=== PATIENT | male | born 1975 | race Caucasian/White ===

== ENCOUNTER → 2016-07-02 | Day surgery (SDC) | payer BC ==
[2016-06-18 14:11] VITALS: Ht 172.7 cm; Wt 105.9 kg
[~2016-07-02] VITALS: Ht 172.7 cm; Wt 105.9 kg
[~2016-07-02] MED LIST: ATOR-22 PO; BUPIVACAINE 0.25% 2.5MG/ML PF 10 ML VIAL INFIL ONE; IBUP-103 PO; IOPAMIDOL INJ 61% 15 ML VIAL ONE; LIDOCAINE HCL 1% MPF 5 ML VIAL ONE; LISI-787 PO; SODIUM CHLORIDE 0.9% INJ 10 ML VIAL ONE
--- NOTE | 2016-07-02 13:39 | History & Physical Bridge - SC ---
H&P Re-Evaluation Bridge Note: I have examined the patient, reviewed the History & Physical and in the interval since the performance of the History & Physical I have noted the following changes of clinical significance: No changes noted
[2016-07-02 14:15] VITALS: TEMP 37.4
--- NOTE | 2016-07-02 14:15 | Discharge Instructions ---
Discharge Instructions Date of Service Jul 02, 2016. Visit Reason for Visit: Lumbar Spondylolisthesis Discharge Discharge Diagnosis / Problem: chronic back pain Discharge Goals Goal(s): Decrease discomfort, Improve function Activity Recommendations Activity Limitations: resume your previous activity Anesthesia . Post Anesthesia Instructions: If you have had General Anesthesia or IV Sedation: * Do not drive today. * Resume driving when surgeon permits. * Do not make important decisions or sign legal documents today. * Call surgeon for: 1. Temperature elevations greater than 101 degrees F. 2. Uncontrollable pain. 3. Excessive bleeding. 4. Persistent nausea and vomiting. 5. Medication intolerance (nausea, vomiting or rash). * For nausea and vomiting use only clear liquids such as: tea, soda, bouillon until nausea subsides, then gradually increase diet as tolerated. * If you have any concerns or questions, call your surgeon's office. If physician is unavailable and it is an emergency, call 911 or go to the nearest emergency room. . Diet Recommendations Recommended Home Diet: resume previous diet Procedures Procedures Performed: BILATERAL L5 PARS DEFECT INJECTIONS. Pending Studies Studies pending at discharge: no Medical Emergencies . Who to Call and When: Medical Emergencies: If at any time you feel your situation is an emergency, please call 911 immediately. . Non-Emergent Contact Non-Emergency issues call your: Specialist . . "Provider Documentation" section prepared by Yaw Mcclendon.
[2016-07-02 14:21] VITALS: BP 145/90; PULSE 86; O2SAT 94
--- NOTE | 2016-07-02 15:53 | OPERATIVE REPORT ---
DATE OF OPERATION: 07/02/2016 PREOPERATIVE DIAGNOSES: Bilateral L5 pars defects, a grade-1 L5-S1 spondylolisthesis, and chronic low back pain. POSTOPERATIVE DIAGNOSES: Same. PROCEDURE: Bilateral L5 pars defect injections. INDICATIONS: The patient is a 41-year-old white male who was referred by Dr. Jonathan Vaz at [facility] for possible bilateral pars defects injections to help with chronic low back pain. He has a grade-1 L5-S1 spondylolisthesis, but was without significant radicular pain and presents today for the injections to provide him with relief. PHYSICAL EXAMINATION: Pleasant male, seated comfortably. He has point tenderness to palpation of his lower lumbar spine. Worse with extension and rotation. He has normal lower extremity strength and intact sensation distally. Negative seated straight leg raises. CONSENT: Verbal and written consent was obtained from the patient. Risks and benefits were reviewed. Risks include, but are not limited to abscess and allergic reaction. The patient wishes to proceed. DESCRIPTION OF PROCEDURE: The patient was taken back to the special procedures room of the [facility], where he was maintained in a prone position. Backside was cleansed with Betadine x3 and a dry sterile dressing was applied. Fluoroscope was used to identify the left L5 pars defect in an oblique view. Overlying skin was anesthetized with 2.5 mL of lidocaine 1% with a 25-gauge 1.5-inch needle. A 22-gauge 3.5-inch spinal needle was then directed to the target of the defect. It was done under fluoroscopic guidance and when it touched the bony target, it was injected with 40 mg of Depo-Medrol and 1 mL of bupivacaine 0.25%. Injection was well tolerated. The right L5 pars defect was then fluoroscopically identified in an oblique fashion. Overlying skin anesthetized with 2.5 mL of lidocaine 1% with a 25-gauge 1.5-inch needle. A 22-gauge 3.5-inch spinal needle was then directed targeting the bony defect. He then underwent injection after contacted bone or solid tissue of 40 mg Depo-Medrol and 1 mL of bupivacaine 0.25%. Injection was well tolerated. DISPOSITION: 1. The patient is taken out into the discharge recovery area, where he will be discharged home once discharge criteria have been met. 2. Follow up in the [facility] office in 2-4 weeks. I attest to the content of the Intraoperative Record and any orders documented therein. Any exceptio ns are noted below.
== END | disposition home or self-care (01) ==
LOC: X.SURG 12:39
PROVIDERS: ATTEND Physical Medicine & Rehabilitation
DX: M43.16 Spondylolisthesis, lumbar region (principal); G89.29 Other chronic pain

== ENCOUNTER → 2016-10-07 | Outpatient (CLI) | payer BC ==
[~2016-10-07] MED LIST changes: -BUPIVACAINE 0.25% 2.5MG/ML PF 10 ML VIAL INFIL ONE; -IOPAMIDOL INJ 61% 15 ML VIAL ONE; -LIDOCAINE HCL 1% MPF 5 ML VIAL ONE; -SODIUM CHLORIDE 0.9% INJ 10 ML VIAL ONE
--- NOTE | 2016-10-08 06:18 | PAP/PSG TECHNICIAN REPORT ---
[facility] Global Product Manager Polysomnogram Report Study name: None Report date: 10/08/2016 Study date: 10/07/2016 Referring Physician: Vincent Diallo MD Name: BOWEN EDWARDS Interpreting Physician: Avinash Monge D.O. Date of : 1975 Global Product Manager: Ranjeet Lazar RPSGT. Sex: Male Age: 41 StudyType: PSG Weight: 255 lbs Height: 41 years, Height 5' 8" BMI: 38.77 Medications: ONE TOUCH ULTRA, ATORVASTATIN 40 MG, BUSPIRONE 7.5 MG, HYDROCHLOROTHIAZIDE- LISINOPRIL 12.5 MG Patient History PATIENT HAS HISTORY HYPERTENSION, DAYTIME FATIGUE AND SNORING. HE HAD A HOME SLEEP STUDY DONE AND WAS POSITIVE FOR MILD DESTIN. HE IS HERE TODAY FOR CONFIRMATION ON HIS DESTIN. ESS = 19 RM 4 Parameters Monitored NPSG: E1-M2, E2-M1, Fp1-M2, Fp2-M1, F3-M2, F4-M2, F4-M1, C3-M2, C4-M2, C4-M1, O1-M2, O2-M2, O2-M1, T3-M2, T4-M1, P3-M2, P4-M1, CHIN1, CHIN2, HR, EKG, Legs, PFLOW, SNOR, FLOW, CFLOW, Tidal Volume, THOR, ABDO, SpO2, PLTH, CPRESS, ETCO2 Wave, ETCO2, pH Sleep Architecture Sleep Stages Time at Lights Off 10:32:33 PM STAGES Time (min.) TST (%) Time at Lights On 5:45:33 AM Wake 41.5 -- Total Recording Time (TRT) 433.50 min. N1 8.0 2 Total Sleep Period (TSP) 399.5 min. N2 202.0 52 Total Sleep Time (TST) 391.5min. N3 110.5 28 Awake Time 41.5 min. REM 71.0 18 Wake after Sleep Onset 8.5 min. Sleep Efficiency (SE) 90 % Sleep Onset Latency (RUCHI) 33.0 min. Number of Stage 1 Shifts None Awakenings 12 Stage Changes 67 Number of REM periods 9 REM 71.0 18 REM Latency 62.5 min. NREM 320.5 82 Body Position Analysis Supine Right Left Side Prone Vertical Total Sleep Time (min.) 268.3 77.2 81.7 158.94 0.0 0.0 Total Sleep Time (%) 59% 20% 21% 41 0% N/A% Total Sleep Time REM (min.) 42.0 10.5 18.5 None 0.0 0.0 Total Sleep Time NREM (min.) 190.6 66.7 63.2 None 0.0 0.0 Intermittent Wake (min.) 35.7 2.6 3.2 None 0.0 0.0 Total Sleep Period (%) 59% None None None None None Arousals Myoclonus (PLM) * Events Count Index Events Count Index Spontaneous 26 4 Events Awake (PLMW) 65 94.0 Respiratory 3 0.8 Events Asleep w/ Arousal (PLMA) 13 2.0 PLM 12 2 Events Asleep w/o Arousal (PLMS) 75 11.5 Snoring 1 0 Total Asleep 88 13.5 Total 42 6 Total 153 21 Respiratory Analysis * CA OA MA CH H RERA Total Count 0 0 0 0 7 3 7 Index 0.0 0.0 0.0 0 1.1 0 1.5 Mean Duration 0.0 0.0 0.0 0.00 17.6 17.3 17.5 Longest Duration 0.0 0.0 0.0 0.00 0.0 20.6 24.2 Respiratory Event Summary Total Supine ~Supine Right Left Prone REM NREM Apneas Count 0 0 0 0 0 N/A 0 0 Index 0.0 0 0 0.0 0.0 N/A 0 0 Hypopneas (4% Desat) Count 7 5 2 1 1 N/A 2 5 Index 1.1 1.3 1 0.8 0.7 N/A 1.7 0.9 Apneas & All Hypopneas Count 7 5 2 1 1 N/A 2 5 Index 1.1 1 1 1 1 N/A 1.7 0.9 Respiratory Events (Injection Molding Operator+All Hyp+RERA) Count 7 5 5 2 3 N/A 2 5 Index 1.5 1 2 1.6 2.2 N/A 4.2 0.9 Respiratory Related Arousal Count 3 5 3 1 2 N/A 3 2 Index 0.8 1 1 1 1 N/A 3 0 Snoring Analysis Supine Right Left Prone REM NREM Total Snore duration 5.8 min Snores count 46 307 2 N/A 3 352 355 Snore mean duration 1.0 Sec Snores index 12 238 1 N/A 2.5 65.9 54.4 TST with snoring (%) 1.5% Desaturation Event Summary: Minimum %SpO2 Event Count Mean/Min/Max Duration(sec.) Desaturation Index % Time In Bed > 90 11 33.1 / 12.5 / 58.3 32.8 4.7 86 - 90 9 26.6 / 9.0 / 50.7 1.3 94.8 81 - 85 0 N/A 0.0 0.5 76 - 80 0 N/A 0.0 0.0 71 - 75 0 N/A 0.0 0.0 66 - 70 0 N/A 0.0 0.0 61 - 65 0 N/A 0.0 0.0 56 - 60 0 N/A 0.0 0.0 51 - 55 0 N/A 0.0 0.0 < 50 0 N/A 0.0 0.0 Total REM NREM Awake <50% 0.0 min. 0.0 min. 0.0 min. 0.0 min. 51 - 60% 0.0 min. 0.0 min. 0.0 min. 0.0 min. 61 - 70% 0.0 min. 0.0 min. 0.0 min. 0.0 min. 71 - 80% 0.0 min. 0.0 min. 0.0 min. 0.0 min. 81 - 90% 412.2 min. 67.0 min. 317.9 min. 27.4 min. 91 - 100% 20.1 min. 4.0 min. 2.5 min. 13.5 min. Average 88 89 88 90 Minimum SpO2 83 83 85 85 Desaturation Event Index 2.2 3.4 0.4 14.5 # Desat. Events below 89% 12 4 2 6 Time(%) with Saturation below 89% 56.4 6.7 47.9 1.8 Time(min.) with Saturation below 89% 243.7 29.1 207.0 7.6 Time (mins) REM (mins) NREM (mins) % of TST SpO2 Below 90% 6 4 N2 89.0 SpO2 Below 88% 4 0 0 29 Heart Rate Analysis Min (bpm) Max (bpm) Average (bpm) Awake 58 102 74 NREM 53 92 66 REM 54 76 64 Overall 53 92 66 Supplemental O2 Values Minimum O2 level: None Value Start Time End Time Global Product Manager Comments Mr. Edwards slept in the right, left and supine positions. PAC's noted. Leg movements noted. No bruxism noted. Snoring was noted and scored as a 1 on a scale of 1 through 5. (0=no snoring, 5=snoring loud enough to be heard through a closed door or down the baker way) Mr. Edwards awoke to use the restroom 0 times during the night. Mr. Edwards stated I slept as well as I do when I am in my own bed. The final report will be interpreted and signed by a sleep physician. The completed physician report will then be placed in the patient medical record. Therapy (cm H2O) 0 TIB (min.) 433.0 TST (min.) 391.5 Sleep Onset (min.) 33.0 REM Onset From Sleep (min.) 62.5 Sleep Efficiency % 90 Wakefulness (%) 10 Wakefulness (min.) 41.5 NREM 1 (%) 2 NREM 1 (min.) 8.0 NREM 2 (%) 52 NREM 2 (min.) 202.0 NREM 3 (%) 28 NREM 3 (min.) 110.5 REM (%) 18 REM (min.) 71.0 # Arousals 42 Arousal Index 6 # Snore 355 Snore Index 54.4 AHI 1.1 AHI Supine 1 AHI Non-Supine 1 NREM AHI 0.9 REM AHI 1.7 RDI 1.5 # Obstructive Apnea 0 # Central Apnea 0 # Mixed Apnea 0 # Hypopneas 7 RERAs 3 Total Respiratory Events 11 Time Below SpO2 89% (min.) 236.1 Mean NREM SpO2 (%) 88 Mean REM SpO2 (%) 89 Mean Sleep SpO2 (%) 88 Min NREM SpO2 (%) 85 Min REM SpO2 (%) 83 Position Supine (min.) 268.3 Position Non-supine (min.) 158.9 LM Index Sleep 13.5 LM Index NREM 12.2 LM Index REM 19.4 Mean Heart Rate (bpm) 66 Min Heart Rate (bpm) 53
== END | disposition home or self-care (01) ==
LOC: C.NEUR 20:00
PROVIDERS: ATTEND Family Medicine
DX: G47.33 Obstructive sleep apnea (adult) (pediatric) (principal)

== ENCOUNTER → 2016-12-11 | Outpatient (CLI) | payer BC ==
[~2016-12-11] VITALS: Ht 172.7 cm; Wt 108.7 kg
[2016-12-11 13:24] VITALS: BP 138/87; PULSE 91; Ht 172.7 cm; Wt 108.7 kg
== END | disposition home or self-care (01) ==
LOC: C.NEUR 13:12
PROVIDERS: ATTEND Internal Medicine Pulmonary Disease
DX: G47.34 Idiopathic sleep related nonobstructive alveolar hypoventilation (principal); E66.9 Obesity, unspecified

== ENCOUNTER → 2016-12-17 | Outpatient (CLI) | payer BC | END | disposition home or self-care (01) | LOC: C.RC 16:52 | PROVIDERS: ATTEND Internal Medicine Pulmonary Disease | DX: G47.34 Idiopathic sleep related nonobstructive alveolar hypoventilation (principal) ==

== ENCOUNTER → 2017-01-02 | Outpatient (CLI) | payer BC ==
--- NOTE | 2017-01-02 14:26 | DIAGNOSTIC IMAGING REPORT ---
CHEST 2 VIEWS ROUTINE CLINICAL HISTORY: 41 years-old Male presenting with NOCTURNAL HYPOXIA. TECHNIQUE: PA and lateral views of the chest were obtained. COMPARISON: None. FINDINGS: Cardiomediastinal silhouette normal. Lungs and pleural spaces clear. Osseous structures normal. Upper abdomen normal. IMPRESSION: 1. No acute cardiopulmonary disease. Electronically signed by: Prateek Joyner M.D. 01/02/2017 2:24 PM Dictated Date/Time: 01/02/2017 2:24 PM
== END | disposition home or self-care (01) ==
LOC: C.RAD1850 14:12
PROVIDERS: ATTEND Internal Medicine Pulmonary Disease
DX: G47.34 Idiopathic sleep related nonobstructive alveolar hypoventilation (principal)